=== PATIENT | male | born 1990 | race Two or more races ===

== ENCOUNTER 2017-10-18 22:26 | Emergency (ER) | payer MEDICAID ==
[~2017-10-18] VITALS: Ht 165.1 cm; Wt 90.7 kg
[2017-10-18] MEDS ORDERED: DEBROX15 M1 BOTH EARS (22:52)
[2017-10-18] MEDS ORDERED: Hydrogen Peroxide 473ml Bottle TOPIC ONE ×2 (23:10→23:30)
[2017-10-18 23:39] VITALS: BP 121/86
[2017-10-18 23:40] VITALS: BP 121/86
--- NOTE | 2017-10-19 07:11 | Emergency Room Report ---
History of Present Illness General Chief Complaint: Earache Source: Patient Present Illness HPI Patient is a 27-year-old male who presented after increased bilateral earache. He reports having recent used a Q-tip. He reports having decreased hearing to both ears. The patient denied any fever. He reported having sharp pain to both ears. Allergies: Coded Allergies: No Known Allergies (Unverified , 10/18/17) Patient History Reviewed Nursing Documentation: PMH: Agreed; PSxH: Agreed Nursing Documentation-PMH Past Medical History: No Stated History Review of Systems All Other Systems: negative except mentioned in HPI Physical Exam Vital Signs Date Time Temp Pulse Resp B/P (MAP) Pulse Ox O2 Delivery O2 Flow Rate FiO2 10/18/17 22:33 97.5 86 18 127/78 99 Room Air 97.5 General Appearance: well appearing, no apparent distress, alert, GCS 15, non- toxic Head: normocephalic, atraumatic ENT: normal voice, other - bilateral cerumen impaction Neck: full range of motion, supple Respiratory: no respiratory distress, speaking full sentences Gastrointestinal: normal inspection, soft Musculoskeletal: no calf tenderness Neurologic: normal inspection, alert, oriented x3, responsive, news clipping cutter III-XII nml as tested, normal gait Psychiatric: mood/affect normal Skin: no rash Medical Decision Making Diagnostic Impression: Primary Impression: Impacted cerumen of both ears ER Course Patient presented for ear pain. Differential diagnosis included was not limited to otitis media, malignant otitis externa, foreign body, cellulitis, mastoiditis, carotid dissection, myocardial infarction among others. Patient has a benign exam and does not appear to require any further imaging or laboratory testing at this time. Patient presented for cerumen impaction. Ears were irrigated with water by tech with improvement.The patient is advised to follow up with primary care doctor in 1-2 days. Patient is advised to return if any worsening condition or if any changes in status that are concerning. This report is dictated with [employer] infrastructure director software which may occasionally lead to discrepancies related to use of this software. Last Vital Signs Date Time Temp Pulse Resp B/P (MAP) Pulse Ox O2 Delivery O2 Flow Rate FiO2 10/18/17 23:40 97.7 83 18 121/86 97 Room Air 97.7 Status: improved Disposition: HOME, SELF-CARE Condition: Improved Scripts Carbamide Peroxide (DEBROX) 15 Ml Drops 5 DROP BOTH EARS TWICE A DAY for 4 Days, #15 ML 0 Refills Prov: Saji Cabrera 10/18/17 Referrals: NOT CHOSEN IPA/MD,REFERRING (PCP) Patient Instructions: Cerumen Impaction Saji Cabrera Oct 19, 2017 07:11
== END 2017-10-18 23:40 | disposition home or self-care (01) ==
LOC: EMR 23:05
DX: H61.23 Impacted cerumen, bilateral (principal)
CPT/HCPCS: 69210; 99283